=== PATIENT | male | born 1955 | race Caucasian/White ===

== ENCOUNTER 2023-07-06 12:00 | Emergency (ER) | payer OTHER, SELFPAY ==
--- NOTE | ~2023-07-06 | XR_ITS ---
EXAMINATION: XR chest 2V DATE: 07/06/2023 12:29 INDICATION: Tachycardia. TECHNIQUE: Frontal and lateral views of the chest were obtained. COMPARISON: Chest 2 views 04/06/2010, CT abdomen and pelvis 09/19/2018 FINDINGS: There is no pneumonia, pleural effusion, or pneumothorax. The heart size is normal. Again s een are radiopaque foreign bodies in left anterior chest wall. IMPRESSION: 1. No acute cardiopulmonary disease. Reviewed, dictated and finalized at location A.
--- NOTE | 2023-07-06 12:02 | ECG_ITS ---
SEE SCANNED COPY FOR CONFIRMED REPORT MTDD
[2023-07-06 12:03] VITALS: BP 150/85; PULSE 110; RESP 28; TEMP 36.4; O2SAT 100
[2023-07-06 12:16] LABS: Basophils Percent Auto 0.3 % (0.2-1.2); Eosinophils Absolute Auto 0.1 K/mm3 (0-0.3); Eosinophils Percent Auto 1.1 % (0-4.4); Hemoglobin 15.1 g/dL (14.0-18.0); Immature Granulocyte Absolute 0.05 K/mm3 (0.00-0.031); Immature Granulocyte Percent A 0.5 % (0-0.5); Lymphocytes Percent Auto 28.3 % (18.3-44.2); Mean Corpuscular HGB Conc 33.6 g/dl (32-36); Mean Corpuscular Hemoglobin 31.4 pg (26-34); Mean Corpuscular Volume 93.6 fl (80-100); Mean Platelet Volume 9.4 fl (7.4-10.4); Monocytes Absolute Auto 0.7 K/mm3 (0.1-0.6); Monocytes Percent Auto 7.4 % (2.6-8.5); Neutrophils Absolute Auto 6.2 K/mm3 (1.3-6.7); Neutrophils Percent Auto 62.4 % (45.5-73.1); Platelet Count Result 255 k/mm3 (150-375); Red Blood Count 4.81 M/mm3 (4.6-6.20); Red Cell Distribution Width 12.3 % (11.5-14.5); White Blood Count 9.9 K/mm3 (4.5-10.0)
[2023-07-06 12:26] LABS: INR 0.9; Prothrombin Time 12.8 Seconds (11.1-14.7)
[2023-07-06 12:27] LABS: Alanine Aminotransferase 21 U/L (6-50); Albumin Level 4.8 g/dL (3.5-5.1); Alkaline Phosphatase 77 U/L (38-126); Anion Gap 7 mmol/L (4-12); Aspartate Amino Transferase 32 U/L (17-59); Bilirubin,Total 0.6 mg/dL (0.2-1.3); Blood Urea Nitrogen 17 mg/dL (9-20); Calcium 9.8 mg/dL (8.4-10.2); Carbon Dioxide 26 mmol/L (22-30); Chloride 105 mmol/L (98-107); Estimated CRCL calculation 59 ml/min; Estimated Glomerular Filt Rate 60; Glucose 99 mg/dL (65-110); Lipase 87 U/L (23-300); Partial Thromboplastin Time 29.1 Seconds (22.3-36.8); Potassium 4.2 mmol/L (3.4-5.0); Sodium 138 mmol/L (137-145)
[2023-07-06 12:40] LABS: Troponin I < 0.012 ng/mL (0.000-0.034)
[2023-07-06 12:53] VITALS: BP 139/79; PULSE 86; RESP 12; O2SAT 99
[2023-07-06 13:01] VITALS: BP 145/77; PULSE 90; RESP 12; O2SAT 99
--- NOTE | 2023-07-06 13:39 | ED.CHESTPAIN ---
HPI - Chest Pain General Chief Complaint: Chest Pain Stated Complaint: chest pain Time Seen by Provider: 07/06/23 12:43 History of Present Illness HPI narrative: Patient history of anxiety, was been under lot of stress recently, feels like sometimes his heart is skipping a beat, has had this in the past, was supposed to follow-up with cardiology has not done this yet. He did a lot of exercise yesterday, including running up the stairs, and felt totally fine, however when he was sitting down he felt like his heart was skipping beat and became quite anxious. He is unsure if this is mostly anxiety. Related Data Allergies Allergy/AdvReac Type Severity Reaction Status Date / Time No Known Allergies Allergy Verified 02/02/23 08:45 Review of Systems Review of Systems: All systems reviewed & are unremarkable except as noted in HPI and below PMFSH Past Medical History Medical History Dyslipidemia Elevated PSA Surgical History Surgical History History of tooth extraction Family History Family History Mother Graves disease Grandparent Breast cancer Social History Social History Smoking status: Never smoker Tobacco type: pipe Smoking end date: 02/16/79 Alcohol intake: never Lack of Transportation: No Lack of Food: Never True Current Housing: I Have Housing Concerned About Future Housing: No Difficulty Paying Gas/Electric Bills: No Difficulty Paying for Meds: No Currently Unemployed: No Education: Associate Degree Difficulty w/ Childcare or Family Care: No Additional living arrangements comments: Occupation/Education: retired Exam Narrative: EXAMINATION OF ORGAN SYSTEMS/BODY AREAS: Constitutional: Vital signs per nursing GENERAL: Appears anxious HEAD: Normal with no signs of head trauma. EYES: EOMI, conjunctiva normal ENT: Hearing grossly intact LUNGS: Initially slightly hyperventilating then after being told his EKG looked normal, became calmer, clear to auscultation bilaterally HEART: [Regular rate and rhythm] ABD: [Soft], [nontender to palpation] EXT: Normal range of motion, no swelling SKIN: [No rashes or lesions.] NEURO: [Alert and oriented x 3. No gross focal sensory or strength deficits.] PSYCH: Anxious affect Course Vital Signs Vital signs: Vital Signs Temperature 97.5 F L 07/06/23 12:03 Pulse Rate 110 H 07/06/23 12:03 Respiratory Rate 28 H 07/06/23 12:03 Blood Pressure 150/85 H 07/06/23 12:03 Pulse Oximetry 100 07/06/23 12:03 Oxygen Delivery Room Air 07/06/23 12:03 Temperature 98.2 F 07/06/23 13:48 Pulse Rate 87 07/06/23 13:48 Respiratory Rate 13 07/06/23 13:48 Blood Pressure 149/80 H 07/06/23 13:48 Pulse Oximetry 100 07/06/23 13:48 Oxygen Delivery Room Air 07/06/23 13:42 MDM - Chest Pain MDM Narrative Medical decision making narrative: Patient presenting here with palpitations and anxiety. On exam patient is [initially slightly tachycardic and hyperventilating and anxious]. I will obtain EKG and chest xray to rule out arrhythmia/ischemia, pneumothorax, or other cause of chest discomfort/shortness of breath. Chest x-ray on my independent interpretation does not show any acute abnormality, no pneumothorax or consolidation. EKG - 12-Lead: Performed at 1206. Interpreted by me. [Sinus rhythm], right bundle branch block. Rate 99. [Normal] axis. MO-interval 164. QRS duration 133. QTc 416. [No ST segment elevation or depression]. [T-wave normal]. Impression: No EKG evidence of acute ischemia or dysrhythmia. On reevaluation patient is feeling better, resting comfortably, vital signs now stable. 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
[2023-07-06 13:41] VITALS: O2SAT 100
[2023-07-06 13:42] VITALS: O2SAT 100
[2023-07-06 13:48] VITALS: BP 149/80; PULSE 87; RESP 13; TEMP 36.8; O2SAT 100
== END 2023-07-06 13:49 | disposition home or self-care (01) ==
PROVIDERS: Emergency Provider Emergency Medicine; PCP Family Medicine
DX: R00.2 Palpitations (principal); R07.89 Other chest pain; F41.9 Anxiety disorder, unspecified; E78.5 Hyperlipidemia, unspecified; Z87.891 Personal history of nicotine dependence; I45.10 Unspecified right bundle-branch block
CPT/HCPCS: 36415; 71046; 80053; 83690; 84484; 85025; 85610; 85730; 93005; 99284

== ENCOUNTER 2023-11-18 23:09 | Emergency (ER) | payer OTHER, SELFPAY ==
--- NOTE | ~2023-11-18 | XR_ITS ---
Clinical Indication: Cough PA and lateral views of the chest: Comparison: 07/06/2023 Findings: The lungs are clear, without evidence of focal consolidation or pleural effusion. Cardiome diastinal silhouette is within normal limits. Bones and soft tissues are unremarkable. Impression: Normal chest. Reviewed, dictated and finalized at location . Impression: Normal chest.
[2023-11-18 23:18] VITALS: BP 140/90; PULSE 88; RESP 15; TEMP 36.3; O2SAT 100
[2023-11-19 00:07] LABS: Influenza A QL RT-PCR Negative (Negative); Influenza B QL RT-PCR Negative (Negative); RSV RNA, RT-PCR Negative (Negative); SARS-CoV-2 RNA PCR Negative (Negative)
[2023-11-19 01:04] VITALS: BP 173/104; PULSE 92; RESP 22; TEMP 36.4; O2SAT 96; O2SAT 97
--- NOTE | 2023-11-19 01:05 | ECG_ITS ---
Test Date: 2023-11-19 02:00:08 Measurements Intervals [place] Rate: 86 P: 39 [place]: 172 QRS: -56 QRSD: 94 T: 40 QT: 353 QTc: 423 Interpretive Statements SINUS RHYTHM WITH OCCASIONAL VENTRICULAR PREMATURE COMPLEXES MARKED LEFT AXIS DEVIATION [QRS AXIS < -30] PATTERN CONSISTENT WITH PULMONARY DISEASE No previous ECG available for comparison Electronically Signed On 11-19-2023 12:06:27 CDT by Richy Perdomo M.D.
--- NOTE | 2023-11-19 01:14 | ED.URI ---
HPI - URI/Sore Throat General Chief Complaint: Upper Respiratory Infection Stated Complaint: cough x 2 weeks Time Seen by Provider: 11/19/23 00:52 History of Present Illness HPI Narrative: 68-year-old male with history of dyslipidemia presents to the ED with symptoms of URI. Patient states he has had a productive cough for 2 weeks for a coughs up clear sputum with foam. States over the past few days he has noticed a ?burning in my wind pipe?. He states he has burning in his chest and his back when this happens. He states it happens when he is out in cold air. He states he currently does not have any chest pain but is reporting ?burning? in his back currently. He states he had an extensive history of smoking a pipe but he has not smoked a pipe in 8 years. Denies known history of asthma or COPD. Denies current chest pain, lower extremity edema, personal or family history of CAD or CVA. He denies fevers but does report subjective fevers and chills. States he has known mold in his basement and is concerned his symptoms may be due to mold exposure. Related Data Allergies Allergy/AdvReac Type Severity Reaction Status Date / Time No Known Allergies Allergy Verified 02/02/23 08:45 Review of Systems Review of Systems: All systems reviewed & are unremarkable except as noted in HPI and below PMFSH Past Medical History Medical History Dyslipidemia Elevated PSA Surgical History Surgical History History of tooth extraction Family History Family History Mother Graves disease Grandparent Breast cancer Social History Social History Smoking status: Never smoker Tobacco type: pipe Smoking end date: 02/16/79 Alcohol intake: never Lack of Transportation: No Lack of Food: Never True Current Housing: I Have Housing Concerned About Future Housing: No Difficulty Paying Gas/Electric Bills: No Difficulty Paying for Meds: No Currently Unemployed: No Education: Associate Degree Difficulty w/ Childcare or Family Care: No Additional living arrangements comments: Occupation/Education: retired Exam Narrative: GENERAL: Well-appearing, well-nourished, and in no acute distress. HEAD: Normocephalic, atraumatic. EYES: EOMI. ENT: Nares clear, no rhinorrhea or epistaxis. Mucous membranes moist. Posterior pharynx without erythema or tonsillar hypertrophy. Uvula midline. NECK: Supple. CHEST: Clear to auscultation. No respiratory distress. HEART: Regular rate and rhythm. No murmur heard. Normal peripheral pulses. ABDOMEN: Soft, nontender, nondistended, normal active bowel sounds. EXTREMITIES: Normal range of motion. No edema. SKIN: Warm, dry, no rash. NEURO: No focal deficits. Alert and oriented x3 Course Vital Signs Vital signs: Vital Signs Temperature 97.3 F L 11/18/23 23:18 Pulse Rate 88 11/18/23 23:18 Respiratory Rate 15 11/18/23 23:18 Blood Pressure 140/90 11/18/23 23:18 Pulse Oximetry 100 11/18/23 23:18 Oxygen Delivery Room Air 11/18/23 23:18 Temperature 97.6 F 11/19/23 01:04 Pulse Rate 92 11/19/23 01:04 Respiratory Rate 22 H 11/19/23 01:04 Blood Pressure 173/104 H 11/19/23 01:04 Pulse Oximetry 96 11/19/23 01:04 Oxygen Delivery Room Air 11/19/23 01:04 MDM - URI/Sore Throat MDM Narrative Medical decision making narrative: 68-year-old male presents to the emergency department for productive cough for 2 weeks with a burning sensation in his chest and back associated with breathing cold air. Vitals are stable. He is afebrile and nontoxic appearing. Looks sounds are clear. Satting 100% on room air no respiratory distress and speaking in full sentences. EKG was sinus rhythm with occasional PVCs, normal AR interv
[2023-11-19 01:37] LABS: Basophils Percent Auto 0.3 % (0.2-1.2); Eosinophils Absolute Auto 0.2 K/mm3 (0-0.3); Eosinophils Percent Auto 1.9 % (0-4.4); Hematocrit 42.2 % (42.0-52.0); Hemoglobin 14.3 g/dL (14.0-18.0); Immature Granulocyte Absolute 0.07 K/mm3 (0.00-0.031); Immature Granulocyte Percent A 0.7 % (0-0.5); Lymphocytes Absolute Auto 2.78 K/mm3 (0.9-3.2); Lymphocytes Percent Auto 27.7 % (18.3-44.2); Mean Corpuscular HGB Conc 33.9 g/dl (32-36); Mean Corpuscular Hemoglobin 31.9 pg (26-34); Mean Corpuscular Volume 94.2 fl (80-100); Mean Platelet Volume 9.4 fl (7.4-10.4); Monocytes Absolute Auto 0.9 K/mm3 (0.1-0.6); Monocytes Percent Auto 8.7 % (2.6-8.5); Neutrophils Absolute Auto 6.1 K/mm3 (1.3-6.7); Neutrophils Percent Auto 60.7 % (45.5-73.1); Platelet Count Result 243 k/mm3 (150-375); Red Blood Count 4.48 M/mm3 (4.6-6.20); Red Cell Distribution Width 12.4 % (11.5-14.5)
[2023-11-19 01:46] LABS: Alanine Aminotransferase 20 U/L (6-50); Albumin Level 4.5 g/dL (3.5-5.1); Alkaline Phosphatase 76 U/L (38-126); Anion Gap 10 mmol/L (4-12); Aspartate Amino Transferase 32 U/L (17-59); Bilirubin,Total 0.4 mg/dL (0.2-1.3); Blood Urea Nitrogen 18 mg/dL (9-20); Calcium 9.5 mg/dL (8.4-10.2); Carbon Dioxide 25 mmol/L (22-30); Chloride 102 mmol/L (98-107); Estimated Glomerular Filt Rate > 60; Glucose 96 mg/dL (65-110); Lipase 113 U/L (23-300); Sodium 137 mmol/L (137-145)
[2023-11-19 01:48] LABS: Prothrombin Time 13.7 Seconds (11.1-14.7)
[2023-11-19 01:49] LABS: Partial Thromboplastin Time 28.9 Seconds (22.3-36.8)
[2023-11-19 01:58] LABS: NT Pro B Type Natriuretic Pept 37 pg/mL (19.9-100); Troponin I < 0.012 ng/mL (0.000-0.034)
== END 2023-11-19 02:23 | disposition home or self-care (01) ==
PROVIDERS: Emergency Medicine; Emergency Provider Physician Assistant; PCP Family Medicine
DX: J40 Bronchitis, not specified as acute or chronic (principal); Z20.822 Contact with and (suspected) exposure to COVID-19; E78.5 Hyperlipidemia, unspecified; Z87.891 Personal history of nicotine dependence; R07.89 Other chest pain; I49.3 Ventricular premature depolarization; R94.31 Abnormal electrocardiogram [ECG] [EKG]
CPT/HCPCS: 36415; 71046; 80053; 83690; 83880; 84484; 85025; 85610; 85730; 87637; 93005; 99284

== ENCOUNTER 2023-12-06 11:32 | Emergency (ER) | payer OTHER, SELFPAY ==
--- NOTE | ~2023-12-06 | XR_ITS ---
Clinical Indication: Chronic back pain PA and lateral views of the chest: Comparison: 11/19/2023 Findings: The lungs are clear, without evidence of focal consolidation or pleural effusion. Cardiome diastinal silhouette is within normal limits. Bones and soft tissues are unremarkable. Impression: Normal chest. Reviewed, dictated and finalized at [facility]. Impression: Normal chest.
--- NOTE | 2023-12-06 11:41 | ED.BACK ---
HPI - Back Pain/Injury General Chief Complaint: Upper Respiratory Infection Stated Complaint: Pain in Back Time Seen by Provider: 12/06/23 11:41 Source: patient Mode of arrival: ambulatory Limitations: no limitations History of Present Illness HPI Narrative: Mikey is a 68-year-old male patient presenting to the clinic today with complaints right-sided upper thoracic back pain. He reports he was diagnosed with viral bronchitis on November 23 and has had a cough ever since. Although he reports that the cough is improving he does have some back pain and that has not gone away. States that the pain is worse with movement and when coughing. Pain is burning in nature. Productive cough with clear sputum. Denies any fevers and states that he feels better overall other than the back pain Related Data Allergies Allergy/AdvReac Type Severity Reaction Status Date / Time No Known Allergies Allergy Verified 12/06/23 11:56 Review of Systems Review of Systems: Pertinent positives per HPI. Patient denies any fever, chills, rash, headache, visual changes, dizziness, runny nose, sore throat, shortness of breath, chest pain, palpitations, nausea, vomiting, diarrhea, constipation, abdominal pain, or any urinary issues. [facility] Past Medical History Medical History Dyslipidemia Elevated PSA Surgical History Surgical History History of tooth extraction Family History Family History Mother Graves disease Grandparent Breast cancer Social History Social History Smoking status: Never smoker Tobacco type: pipe Smoking end date: 02/16/79 Alcohol intake: never Lack of Transportation: No Lack of Food: Never True Current Housing: I Have Housing Concerned About Future Housing: No Difficulty Paying Gas/Electric Bills: No Difficulty Paying for Meds: No Currently Unemployed: No Education: Associate Degree Difficulty w/ Childcare or Family Care: No Additional living arrangements comments: Occupation/Education: retired Comments At the time of my signature, I reviewed and agree with the nursing past medical, surgical, social, and family history. There is no relevant family history pertinent to the patient complaint. Exam Narrative: General: Well-developed, well nourished, in no apparent distress Head: Normocephalic, atraumatic. Cardio: Regular rate and rhythm, s1 and s2 normal, no murmur appreciated. Resp: Clear to auscultation bilaterally, no rhonchi, rales, wheezing or rubs. Musculoskeletal: No deformity, tender to palpation over the musculature of the right upper thoracic spine, pain worse with coughing and movement, grossly normal range of motion, muscle strength strong and equal in BLE. SLT negative, patellar reflexes 2/4 bilaterally, negative foot drop, normal gait and station exam Course Course Emergency Course: Portions of this record may have been created with voice recognition software. Level of Care: Express Care Visit Vital Signs Vital signs: Vital Signs Temperature 36.8 C 12/06/23 11:47 Pulse Rate 100 12/06/23 11:47 Respiratory Rate 18 12/06/23 11:47 Blood Pressure 146/84 H 12/06/23 11:47 Pulse Oximetry 97 12/06/23 11:47 Oxygen Delivery Room Air 12/06/23 11:47 Temperature 36.8 C 12/06/23 11:47 Pulse Rate 100 12/06/23 11:47 Respiratory Rate 18 12/06/23 11:47 Blood Pressure 146/84 H 12/06/23 11:47 Pulse Oximetry 97 12/06/23 11:47 Oxygen Delivery Room Air 12/06/23 11:47 Vital signs reviewed MDM - Back Pain/Injury MDM Narrative Medical decision making narrative: At the time of visit patient is resting comfortably on the exam table. Patient appears to be nontoxic. Diagnostics: Chest x-ray w
[2023-12-06 11:47] VITALS: BP 146/84; PULSE 100; RESP 18; TEMP 36.8; O2SAT 97
== END 2023-12-06 12:29 | disposition home or self-care (01) ==
PROVIDERS: Emergency Provider Nurse Practitioner Family; PCP Family Medicine
DX: R05.9 Cough, unspecified (principal); M54.6 Pain in thoracic spine; E78.5 Hyperlipidemia, unspecified
CPT/HCPCS: 71046; 99213; G0463

== ENCOUNTER 2024-03-01 10:15 | Emergency (ER) | payer OTHER, SELFPAY ==
--- NOTE | 2024-03-01 10:21 | ED_ITS ---
HPI - Ear Problem General Chief complaint: Ear Stated complaint: LT Ear Bleeding Time Seen by Provider: 03/01/24 10:21 Source: patient, RN notes reviewed and old records reviewed Mode of arrival: ambulatory Limitations: no limitations History of Present Illness HPI Narrative: Patient presents with complaints bleeding from the left ear. He reports that he noticed this when he inserted a Q-tip into the ear. He admits that he often scratches the affected ear with sharp fingernail. He denies any loss of hearing. He denies other injury and trauma. He voices no other concerns or complaints today Related Data Allergies Allergy/AdvReac Type Severity Reaction Status Date / Time No Known Allergies Allergy Verified 03/01/24 10:18 Review of Systems Review of Systems: All systems reviewed & are unremarkable except as noted in HPI and below Constitutional: Constitutional: Reports no additional constitutional complaints ENT: Reports system reviewed and no additional complaints, except as documented and Reports as per HPI Cardiovascular: Cardiovascular: Reports no additional cardiovascular complaints Respiratory: Respiratory: Reports no additional respiratory complaints Gastrointestinal: Gastrointestinal: Reports no additional gastrointestinal complaints [facility] Past Medical History Medical History Dyslipidemia Elevated PSA Surgical History Surgical History History of tooth extraction Family History Family History Mother Graves disease Grandparent Breast cancer Social History Social History Smoking status: Never smoker Tobacco type: pipe Smoking end date: 02/16/79 Alcohol intake: never Lack of Transportation: No Lack of Food: Never True Current Housing: I Have Housing Concerned About Future Housing: No Difficulty Paying Gas/Electric Bills: No Difficulty Paying for Meds: No Currently Unemployed: No Education: Associate Degree Difficulty w/ Childcare or Family Care: No Additional living arrangements comments: Occupation/Education: retired Comments At the time of my signature, I reviewed and agree with the nursing past medical, surgical, social, and family history. There is no relevant family history pertinent to the patient complaint. Exam Const: General: cooperative, no acute distress, alert and awake Orientation/consciousness: oriented to person, oriented to place and oriented to time HENMT: Head: normal to inspection Ears: TM's normal bilaterally and Abnormal EAC present other ( superficial scratch with some associated dried blood left ear canal) Resp: Effort & Inspection: normal respiratory effort and able to speak in complete sentences Auscultation: clear to auscultation bilaterally, no crackles, no rales, no rhonchi and no wheezes Cardio: Palpation: normal PMI Rate: regular rate Rhythm: regular rhythm Heart sounds: S1 normal heart sound present and S2 normal heart sound present Neuro: General: oriented to person, oriented to place and oriented to time Cranial nerves: Yes CN's II-XII intact bilaterally Psych: Appearance: grossly normal Thought process: Normal thought process present Insight: Good insight present (Psych) Judgement: Good judgement present (Psych) Course Course Level of Care: Express Care Visit Vital Signs Vital signs: Reviewed Medical Decision Making MDM Narrative Medical decision making narrative: patient with TMs intact bilaterally. There is a small superficial scratch to the left ear canal. Patient advised to leave this alone, let it heal. He is agreeable to plan. Follow with primary care provider. Emergency department for new or worse symptoms Discharge instructions reviewed with patient, as well as provided in writing per nursing staff. The instructions also include specific and strict return/GO TO THE ER as well as f/u information. All questions have been answered, and the patient deny any further questions with discharge and discharge plan. Some parts of this dictation were generated by voice recognition software and may contain typographical and/or grammatical inaccuracies. Vital Signs Vital Signs: reviewed Lab Data Lab results reviewed: Yes I reviewed the patient's lab results. Lab results narrative: reviewed Discharge Plan Discharge Clinical Impression: Otalgia Qualifiers: Laterality: left Qualified Code(s): H92.02 - Otalgia, left ear Patient Disposition: Home, Self-Care Condition: Stable Instructions: Antibiotic Form, Earache (ED) Additional Instructions: Overall affected area to heal. Follow up with primary care provider. Emergency department for new or worse symptoms Patient Language: Yakut Prescriptions: No Action atorvastatin 40 mg tablet 40 mg PO QHS Qty: 90 2RF lisinopril 10 mg tablet 10 mg PO DAILY Qty: 90 1RF Follow-up/Referrals: Nahum,Rissa Enriquez MD [Primary Care Provider] - 2 Weeks Time of Disposition: 10:40
[2024-03-01 10:23] VITALS: BP 145/88; PULSE 103; RESP 18; TEMP 36.4; O2SAT 98
== END 2024-03-01 10:41 | disposition home or self-care (01) ==
PROVIDERS: Emergency Provider Nurse Practitioner Family; PCP Student in an Organized Health Care Education/Training Program
DX: H92.02 Otalgia, left ear (principal); E78.5 Hyperlipidemia, unspecified
CPT/HCPCS: 99211; G0463

== ENCOUNTER 2024-07-20 18:13 | Emergency (ER) | payer OTHER, SELFPAY ==
[2024-07-20 18:20] VITALS: BP 157/83; PULSE 93; RESP 19; TEMP 36.9; O2SAT 99
[2024-07-20] MEDS: TETANUS,DIPHTHERIA,AC PERTUSSIS ADULT (0.5 ML) BOOSTRIX IM (18:35)
--- NOTE | 2024-07-20 19:00 | ED_ITS ---
HPI - Wound/Laceration General Chief Complaint: Wound/Laceration Stated Complaint: Cut On Rt Arm History of Present Illness HPI narrative: Patient is a 68-year-old male presents to urgent care with concerns regarding a laceration his right forearm. 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 Pt reports he has been putting Neosporin and changing a dressing over it twice a day. He reports this morning he started noticing redness, warmth, and burning. Patient endorses a history of high blood pressure but denies any other pertinent medical history. Related Data Home Medications ?Medication ?Instructions ?Recorded ?Confirmed ?Last Taken ?Type omeprazole 20 mg capsule,delayed mg 07/20/24 Unknown History release valsartan 40 mg tablet mg 07/20/24 Unknown History Allergies Allergy/AdvReac Type Severity Reaction Status Date / Time loratadine (From Claritin) AdvReac Intermediate Hyperactive Verified 07/20/24 18:26 Review of Systems Review of Systems: All systems reviewed & are unremarkable except as noted in HPI and below PMFSH Past Medical History Medical History Elevated PSA Dyslipidemia Surgical History Surgical History History of tooth extraction Family History Family History Mother Graves disease Grandparent Breast cancer Social History Social History Smoking status: Never smoker Tobacco type: pipe Smoking end date: 02/16/79 Alcohol intake: never Lack of Transportation: No Lack of Food: Never True Current Housing: I Have Housing Concerned About Future Housing: No Difficulty Paying Gas/Electric Bills: No Difficulty Paying for Meds: No Currently Unemployed: No Education: Associate Degree Difficulty w/ Childcare or Family Care: No Additional living arrangements comments: Occupation/Education: retired Exam Narrative: GENERAL: Well appearing, well-nourished, non-toxic, in no acute distress. NECK: Supple. No adenopathy, no masses. RESPIRATORY: Airway patent, respirations nonlabored. Clear to auscultation bilaterally, no rales, rhonchi, wheezing. CARDIOVASCULAR: Regular rate and rhythm without murmurs, rubs, or gallops. Peripheral pulses 2+ and equal bilaterally. ABDOMINAL: Soft, nontender, nondistended, no hepatosplenomegaly. Normoactive BS. MUSCULOSKELETAL: Moves all extremities. Strength/ROM intact without gross deformities. SKIN: Warm, dry, normal color. No rashes. R forearm open, shallow laceration 4cm length x 1cm width, mild amount of serous drainage noted. Approximately one inch area of redness/warmth around pt's open wound. NEURO: A&O X3. Speech clear. Cranial nerves II-XII intact. No ataxic movements. PSYCHIATRIC: Appropriate mood and affect. Normal interaction. Course Course Level of Care: Express Care Visit Vital Signs Vital signs: Vital Signs Temperature 36.9 C 07/20/24 18:20 Pulse Rate 93 07/20/24 18:20 Respiratory Rate 19 07/20/24 18:20 Blood Pressure 157/83 H 07/20/24 18:20 Pulse Oximetry 99 07/20/24 18:20 Oxygen Delivery Room Air 07/20/24 18:20 Temperature 36.9 C 07/20/24 18:20 Pulse Rate 93 07/20/24 18:20 Respiratory Rate 19 07/20/24 18:20 Blood Pressure 157/83 H 07/20/24 18:20 Pulse Oximetry 99 07/20/24 18:20 Oxygen Delivery Room Air 07/20/24 18:20 MDM - Wound/Laceration MDM Narrative Medical decision making narrative: Patient is a 68-year-old male presents to urgent care with concerns regarding a laceration his right forearm. 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 Pt reports he has been putting Neosporin and changing a dressing over it twice a day. He reports this morning he started noticing redness, warmth, and burning. Patient endorses a history of high blood pressure but denies any other pertinent medical history. Diagnosis: cellulitis R forearm Patient Education/Shared MDM: Results of examination shared with patient. He was advised to keep his wound clean. Pt advised to clean the wound with soap and water twice a day. He can put Mupirocin ointment over the top twice a day and keep it covered with a bandage. Patient advised to follow-up with their PCP as needed. He will be discharged home with a prescription for Keflex and Mupirocin cream. Strict return precautions provided. Patient verbalized understanding and is in agreement with plan. Vital signs stable at time of discharge. All questions answered. Differential Diagnosis Differential diagnosis: Likely laceration, abrasion and other (cellulitis) Discharge Plan Discharge Clinical Impression: Cellulitis of forearm, right, Laceration Patient Disposition: Home Condition: Stable Instructions: Antibiotic Form, Cellulitis (ED) Additional Instructions: Please present to the ER with any worsening symptoms. Follow-up with primary care provider as needed. Take all medications as prescribed, including regularly scheduled medications. Complete your full dose of antibiotics. Patient Language: Andorran Prescriptions: New cephalexin 500 mg capsule 500 mg PO Q8H 10 Days Qty: 30 0RF mupirocin [Centany] 2 % ointment 1 applic topical BID Qty: 22 0RF No Action omeprazole 20 mg capsule,delayed release(DR/EC) valsartan 40 mg tablet atorvastatin 40 mg tablet 40 mg PO QHS Qty: 90 2RF lisinopril 10 mg tablet 10 mg PO DAILY Qty: 90 1RF Follow-up/Referrals: Nahum,Rissa Enriquez MD [Primary Care Provider] - Time of Disposition: 18:57
== END 2024-07-20 18:58 | disposition home or self-care (01) ==
PROVIDERS: Emergency Provider Registered Nurse; PCP Student in an Organized Health Care Education/Training Program
DX: L03.113 Cellulitis of right upper limb (principal); S51.811A Laceration without foreign body of right forearm, initial encounter; W45.8XXA Other foreign body or object entering through skin, initial encounter; Z23 Encounter for immunization; E78.5 Hyperlipidemia, unspecified; Z87.891 Personal history of nicotine dependence
CPT/HCPCS: 90471; 90715; 99213; G0463